=== PATIENT | female | born 1990 | race Caucasian/White ===

== ENCOUNTER → 2018-01-20 | Day surgery (SDC) | payer OTHER ==
[~2018-01-20] VITALS: Ht 157.5 cm; Wt 130.6 kg
--- NOTE | 2018-01-20 11:09 | Operative Report ---
Operative/Inv Procedure Report Surgery Date: 01/20/18 Name of Procedure: Laparoscopic cholecystectomy Pre-Operative Diagnosis: Biliary colic Post-Operative Diagnosis: Same Estimated Blood Loss: scant Surgeon/Checker/Stocker: Harpreet CABRERA,Bry Mcduffie/Wes RODRIGUEZ Anesthesia: general endotracheal tube Specimens: Gallbladder Operative/Procedure Note Note: After informed consent patient is brought to the operating room and laid supine. General anesthesia was obtained and her abdomen was prepped and draped. The skin above the umbilicus infiltrated with local anesthesia and a curvilinear incision made sharply. We came down through the subcutaneous tissues bluntly and grasped the fascia with Jordan's. A fasciotomy was created sharply and stay sutures placed. The peritoneum was entered sharply and a blunt Tatum port was placed. Pneumoperitoneum was achieved. 3, 5 mm ports were placed in the epigastrium and right upper quadrant after local anesthesia was instilled and under direct vision the camera. She's placed in reverse Trendelenburg and rotated towards the left. The gallbladder is identified. Gallbladder was tensely distended with bile. There is no acute inflammatory changes. It was relatively intrahepatic. It was grasped at the dome and retracted towards the head. Infundibulum was then grasped. Adhesions to the undersurface were taken down with blunt and cautery dissection. We dissected both sides the triangle Calot peritoneal tissue with cautery. The artery was medial and its normal anatomic position. It was cauterized medially to allow it to be mobilized away from the duct. There is a large lymph node overlying the artery which was dissected free with cautery. The duct was diminutive in size. [place] was cleared of areolar tissue with cautery. The arteries and duct were doubly ligated with clips. Gallbladder is removed from the fossa electrocautery. There were a few small holes in the gallbladder created during dissection with modest amount of bile leakage. The gallbladder was amputated from the fossa and was placed in Endo Catch bag and cinched up. Right upper quadrant was and suction irrigated normal saline. Hemostasis achieved with cautery. The ports were then removed and the gallbladder delivered and passed off the field. The fascia was closed with 0 Vicryl suture. Skin incisions closed with 4-0 Vicryl. Steri-Strips and sterile dressing applied. Sponge and needle counts are correct. CC: Juliette Stratton DO
== END ==
LOC: STS 02:08
DX: K80.10 Calculus of gallbladder with chronic cholecystitis without obstruction (principal); K21.9 Gastro-esophageal reflux disease without esophagitis; E28.2 Polycystic ovarian syndrome; E66.01 Morbid (severe) obesity due to excess calories; Z68.43 Body mass index [BMI] 50.0-59.9, adult; J45.909 Unspecified asthma, uncomplicated
CPT/HCPCS: 81025; J0131; J0690; J2250; J2405